=== PATIENT | female | born 1990 | race Caucasian/White ===

== ENCOUNTER 2016-10-06 16:12 | Emergency (ER) | payer BC ==
[2016-10-06 16:33] VITALS: BP 108/67
--- NOTE | 2016-10-06 16:37 | UC ---
Throat Pain/Nasal Marcus HPI - HPI Summary HPI Summary: complaint of nasal congestion and cough that started approx 5 days ago sore throat for the first daty that resolved left ear pain this morning intermittent headache denies fever and chills took some sudafed without relief this morning - History of Current Complaint Chief Complaint: UCGeneralIllness Stated Complaint: SINUSES Time Seen by Provider: 10/06/16 16:35 Hx Obtained From: Patient Hx Last Menstrual Period: 10/01/16 - Allergies/Home Medications Allergies/Adverse Reactions: Allergies Allergy/AdvReac Type Severity Reaction Status Date / Time No Known Allergies Allergy Verified 10/06/16 16:27 Home Medications: Home Medications Ascorbic Acid TAB* [Vitamin C TAB*] 500 mg PO DAILY 10/06/16 [History Confirmed 10/06/16] Vitamin TAB* 1 tab PO DAILY 10/06/16 [History Confirmed 10/06/16] PMH/Surg Hx/FS Hx/Imm Hx Previously Healthy: Yes - Surgical History Surgical History: Yes Surgery Procedure, Year, and Place: 03/2016 - Family History Known Family History: Negative: Cardiac Disease, Hypertension, Diabetes - Social History Occupation: Employed Full-time Lives: With Family Alcohol Use: None Substance Use Type: None Smoking Status (MU): Never Smoked Tobacco Review of Systems Constitutional: Negative Skin: Negative Eyes: Negative ENT: Ear Ache, Nasal Discharge Respiratory: Cough Cardiovascular: Negative Gastrointestinal: Negative Genitourinary: Negative Motor: Negative Neurovascular: Negative Musculoskeletal: Negative Neurological: Negative Psychological: Negative All Other Systems Reviewed And Are Negative: Yes Physical Exam Triage Information Reviewed: Yes Appearance: No Pain Distress, Well-Nourished Vital Signs: Initial Vital Signs Temp 96.4 F 10/06/16 16:28 Pulse 84 10/06/16 16:28 Resp 16 10/06/16 16:28 BP 108/67 10/06/16 16:28 Pulse Ox 100 10/06/16 16:28 Vital Signs Reviewed: Yes Eyes: Positive: Conjunctiva Clear ENT: Positive: Pharyngeal erythema, Nasal congestion, Nasal drainage, TMs normal Neck: Positive: No Lymphadenopathy Respiratory: Positive: Lungs clear, Normal breath sounds, No respiratory distress Cardiovascular: Positive: RRR, No Murmur, Pulses Normal Abdomen Description: Positive: Nontender, Soft Bowel Sounds: Positive: Present Musculoskeletal Exam: Normal Neurological Exam: Normal Psychological Exam: Normal Skin Exam: Normal Throat Pain/Nasal Course/Dx - Differential Dx/Diagnosis Differential Diagnosis/HQI/PQRI: Otitis Media, Pharyngitis, URI Provider Diagnoses: URI Discharge - Discharge Plan Condition: Stable Disposition: HOME Prescriptions: Oxymetazoline 0.05% NASAL SPR* [Afrin 0.05% NASAL SPRAY*] 1 spray NASAL Q12H #1 btl Patient Education Materials: Upper Respiratory Infection (ED) Referrals: [facility] [place] [Outside] Additional Instructions: VIRAL UPPER RESPIRATORY INFECTION (COMMON COLD) What is Viral Upper Respiratory Infection? Viral upper respiratory infection is the medical term for the common cold. Respiratory infections can be caused by either a virus or bacteria. The common cold is caused by a virus. The virus travels through the air and can be passed easily from one person to another. This is one reason that it is so important to cover your mouth when you cough or sneeze. When you cover your mouth you will get the virus on your hands. If you touch something with that hand the virus is spread to the object you touch. Because of this you should be sure to wash your hands often when you have a cold. Symptoms usually begin 1 to 3 days after the virus takes hold in your body. Other people can catch your cold even before you start to notice symptoms, which is one reason why colds are hard to prevent. Symptoms May Include: Scratchiness or tickling in the throat Sore throat Stuffy nose Generalized aches and pains Coughing or sneezing Feeling tired Treatment Recommendations: Drink plenty of clear, nonalcoholic fluids, such as water, sports drinks, or juice. For example, an average adult should drink 8 ounces every hour, a child 6 to 10 years should drink 4 ounces every hour, and a child under 6 should drink 1 to 2 ounces every hour. You should rest as much as possible. You can use a cool-mist humidifier or steam vaporizer to increase air moisture. This will make it easier to breathe. Remember that a steam vaporizer may contain hot water that can cause severe garza. If you smoke, stopsmoke irritates bronchial passages. If you are coughing up mucus, and milk seems to make the sputum thicker, do not eat or drink foods that contain milk. You want to try to cough up mucous whenever possible so that you dont get pneumonia. Do not use cough suppressant medicine without your healthcare providers [place]. You should take all medications prescribed until completely gone, or as instructed. Non-prescription medicine such as acetaminophen (Tylenol) or ibuprofen (Motrin , Advil) may help your aches, pains, and fever. Do not take someone else's medicine, or penicillin tablets that you may have saved. You could cause a more serious problem than you already have. Don't bundle up to sweat out a fever. It only makes your fever worse. If you feel cold, cover up; if you feel warm, dress lightly.
== END 2016-10-06 16:57 | disposition home or self-care (01) ==
LOC: UCCORT 16:12
DX: J06.9 Acute upper respiratory infection, unspecified (principal)
CPT/HCPCS: 99212; G0463